=== PATIENT | female | born 1960 | race Two or more races ===

== ENCOUNTER 2017-05-01 15:32 | Outpatient (CLI) | payer OTHER ==
[2017-05-01 16:01] LABS: CREATININE 0.7 mg/dL (0.4-1.0)
== END 2017-05-01 15:33 | disposition home or self-care (01) ==
LOC: LAB 15:32
PROVIDERS: ATTEND Psychiatry & Neurology Neurology
DX: D32.9 Benign neoplasm of meninges, unspecified (principal)
CPT/HCPCS: 36415; 82565; 84520

== ENCOUNTER 2017-05-08 13:39 | Outpatient (CLI) | payer OTHER ==
[2017-05-08] MEDS ORDERED: GADOBUTROL 7.5 MMOL/7.5 ML VIAL ONE (14:23)
[2017-05-08] MEDS ORDERED: GADOBUTROL 7.5 MMOL/7.5 ML VIAL IVP ONE (15:06)
--- NOTE | 2017-05-08 16:55 | MRI Report ---
EXAM: MRI BRAIN WITHOUT AND WITH CONTRAST EXAM DATE: 05/08/2017 03:14 PM. CLINICAL HISTORY: MENINGIOMA. COMPARISON: MRI brain 09/15/2015 TECHNIQUE: Multiplanar, multisequence T1-weighted and fluid-sensitive MR sequences of the brain were performed. Sequences optimized for routine evaluation. Other: None. Without and with IV Contrast: Yes . 7.5 mL Gadavist FINDINGS: Brain Volume: Normal for age. Parenchyma/Dura: Again noted is bifrontal, right greater than left, cystic encephalomalacia with surr ounding gliosis at the site of previously resected meningioma. The overall appearance is similar to p rior study, with unchanged size of the cysts bilaterally. No abnormal enhancement to suggest residual /recurrent meningioma. No acute hemorrhage, mass, or acute infarct. Scattered T2/FLAIR hyperintense s ubcortical and deep white matter lesions within cerebral hemispheres bilaterally. No parenchymal micr ohemorrhages. Ventricles/Cisterns: Stable size and configuration of the ventricles with stable ex vacuo dilatation of the frontal horns and anterior bodies of the lateral ventricles. Sinuses: No acute appearing sinus disease. Bones: Likely status post prior bifrontal craniotomy. Otherwise no marrow signal abnormality. Other: Empty sella appearance is noted, may represent empty sella syndrome. IMPRESSION: 1. Again noted is bifrontal, right greater than left, cystic encephalomalacia with surrounding gliosi s at the site of previously resected meningioma. The overall appearance is similar to prior study, wi th unchanged size of the cysts bilaterally. No abnormal enhancement to suggest residual/recurrent men ingioma. 2. Scattered T2/FLAIR hyperintense subcortical and deep white matter lesions within cerebral hemisphe res bilaterally. These lesions are nonspecific, and can be seen with the entire gamut of white matter conditions, including migraine headaches and as sequela of chronic microangiopathy. This is likely o f no clinical significance unless correlated with history of hypertension/diabetes. It is likely unre lated to present symptomatology. 3. No evidence of acute intracranial abnormality. [facility] Referring Provider Line: [phone] SITE ID: [id number]
== END 2017-05-08 13:40 | disposition home or self-care (01) ==
LOC: DI 13:39
PROVIDERS: ATTEND Psychiatry & Neurology Neurology
DX: D32.9 Benign neoplasm of meninges, unspecified (principal); G93.89 Other specified disorders of brain
CPT/HCPCS: 70553; A9585

== ENCOUNTER 2018-11-01 16:01 | Outpatient (CLI) | payer OTHER ==
[2018-11-01] MEDS ORDERED: GADOBUTROL 7.5 MMOL/7.5 ML VIAL ONE (16:50)
[2018-11-01] MEDS ORDERED: GADOBUTROL 7.5 MMOL/7.5 ML VIAL IVP ONE (16:57)
--- NOTE | 2018-11-02 17:01 | MRI Report ---
Reason: MENINGIOMA Procedure Date: 11/01/2018 Accession Number: [id number] / [id number] Procedure: MRI - Brain W/WO CPT Code: FULL RESULT: EXAM: MRI BRAIN WITHOUT AND WITH CONTRAST EXAM DATE: 11/01/2018 05:05 PM. CLINICAL HISTORY: 58-year-old female. History of meningioma status post resection 2004. Recent visual disturbances. Follow-up evaluation. COMPARISON: MR brain 05/08/2017 TECHNIQUE: Multiplanar, multisequence T1-weighted and fluid-sensitive MR sequences of the brain were performed. Sequences optimized for routine evaluation. Other: None. IV Contrast: 6.5 ML Gadavist. FINDINGS: Parenchyma: Redemonstration of bifrontal cystic encephalomalacia and surrounding gliosis, right greater than left at the site of the previously resected meningioma. The overall appearance is similar to the prior study. No abnormal enhancement to suggest residual/recurrent meningioma. No acute hemorrhage, mass, or acute infarct. Scattered T2/FLAIR hyperintense subcortical and deep white matter lesions are again seen within cerebral hemispheres bilaterally. Two 3 mm T2 hypointense lesions within the right subinsular region (series 601 image 14), lateral right frontal lobe (series 601 image 13). These are nonspecific, may represent small cavernous malformations. Ventricles/Cisterns: Stable size and configuration of the ventricles and cisterns with stable exvacuo dilatation of the frontal horns and anterior bodies of the lateral ventricles. Orbits: Symmetric and unremarkable. Sella Turcica: Empty sella appearance is noted, may represent empty sella syndrome. IAC: Symmetric and unremarkable. Vasculature: Normal signal flow void is seen in the major arterial structures at the skull base. The dural sinuses are patent and enhance normally. Sinuses: No acute sinus disease. Bones: Status post bifrontal craniotomy. Other: None. IMPRESSION: 1. Redemonstration of bifrontal cystic encephalomalacia and surrounding gliosis, right greater than left at the site of the previously resected meningioma. The overall appearance is similar to the prior study. No abnormal enhancement to suggest residual/recurrent meningioma. 2. No acute hemorrhage, mass, or acute infarct. 3. Scattered T2/FLAIR hyperintense subcortical and deep white matter lesions are again seen within cerebral hemispheres bilaterally. While nonspecific, these are favored to represent sequela of chronic microangiopathy. 4. Two 3 mm T2 hypointense lesions within the right subinsular region (series 601 image 14), lateral right frontal lobe (series 601 image 13). These are nonspecific, may represent small cavernous malformations. 5. Stable size and configuration of the ventricles and cisterns with stable ex vacuo dilatation of the frontal horns and anterior bodies of the lateral ventricles. 6. Empty sella appearance is noted, may represent empty sella syndrome. [facility]
== END 2018-11-01 16:02 | disposition home or self-care (01) ==
LOC: DI 16:01
PROVIDERS: ATTEND Psychiatry & Neurology Neurology
DX: G93.89 Other specified disorders of brain (principal); H53.40 Unspecified visual field defects
CPT/HCPCS: 70553; A9585

== ENCOUNTER 2019-01-24 09:15 | Outpatient (CLI) | payer OTHER ==
[2019-01-24 10:18] VITALS: BP 130/80
--- NOTE | 2019-01-24 10:18 | CONSULTATION NOTE ---
Information from patient questionnaire entered by Theresa Rowley. I have reviewed and concur with the information entered by Theresa Rowley. This document represents the service I personally performed and the decisions made by me, Usha Rocha MD, [facility]. - History of Present Illness Chief Complaint: Insomnia, Unrefreshed sleep, Excessive daytime sleepiness, Fatigue The patient tells me that she normally goes to bed around 10:30 pm, and it takes her approximately 2 hours to fall asleep. She took melatonin but it did not help. She was also prescribed Lunesta which helped but she stopped after 2 - 3 weeks. She has been told that she snores loudly and irregularly at night. She has been observed to stop breathing in her sleep. Her bed partner can still sleep in the same bed. He uses a CPAP. 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 She can recall waking up on the average of 1-2 times during the night. Most of the time she wakes up because of snoring and choking. There is a lot of tossing and turning in her sleep. Generally she can recall having dreams. She usually wakes up at 6:30 am and does not feel refreshed. She gets up the same time on weekends. She usually does not have a morning headache. D uring the day she complains of feeling sleepy and fatigued. She has never fallen asleep while driving nor has any accident due to sleepiness. She usually does not take naps during the day. If she naps, upon falling asleep during the day she denies having vivid dreams. She reports having impaired concentration during the day. There is no somniloquy (sleep talking) or somnambulism (sleep walking). [place] Sleepiness Scale Score: 17 - Past Medical History Past Medical History: Hypertension, Hypothyroidism, Asthma, Other (pre-diabetic S/P tonsillectomy s/p removal of meningioma s/p tracheostomy) - Allergies/Home Medications Allergies and home medications reviewed: Yes - Social History The patient's occupation is a RN. Patient is and lives in [place]. Smoked in the past 12 months: No Alcohol use: No Caffeine use: Yes Amount and frequency: 1 cup a day - Family History Family history of sleep disordered breathing: Yes Family Hx Sleep Apnea: Father: Snoring - Review of Systems Weight gain over past 5 years: 40 Respiratory: reports: wheeze Ear/Nose/Throat: reports: nasal congestion, tonsillectomy Endocrine: reports: thyroid disease Immunologic: reports: itching - Physical Examination Vital signs obtained and documented by: Dr. Rocha Blood Pressure: 130/80 Cuff size: regular Heart Rate: 72 Height: 5 ft 1 in Weight (kg): 74.389 kg Body Mass Index: 30.9 BMI Classification: Class 1 Neck circumference: 15 Mood/affect: normal HEENT: No craniofacial malformation Nostrils: patent to airflow Turbinates: normal Septum: midline Mouth and throat: narrow oropharynx (Mallampati Class III) Soft palate: long Hard palate: normal Uvula: normal Tongue: enlarged in size with teeth reynolds on lateral edges Tonsils: absent bilaterally Chin and jaw: Micrognathia Neck: normal w/o lymphadenopathy or thyromegaly Heart: regular rate and rhythm, murmur Lungs: clear bilaterally Abdomen: soft Extremities: no edema or clubbing Neurologic: intact - Impression 1. Suspected Obstructive Sleep Apnea-Hypopnea Syndrome, as suggested by a histo ry of loud and irregular snoring, observed cessation of breath while asleep, gasping or choking in sleep, unrefreshed sleep, and excessive daytime sleepiness. Narrow oropharynx and obesity are common predisposing factors for obstructive sleep apnea-hypopnea syndrome. Hypertension is a comorbidity. I recommend proceeding to polysomnography to confirm the diagnosis and to assess severity. If the patient has significant sleep disordered breathing, a manual CPAP titration study will also be performed to find the optimal treatment pressure. I informed the patient of what the sleep studies involve and after some discussion, obtained agreement to proceed. The pathophysiology of obstructive sleep apnea-hypopnea syndrome was discussed with the patient and health risks of cardiovascular and cerebrovascular disease if not treated. Risks of drowsy driving discussed in detail and patient advised to avoid long distance driving and to lung puller at the first sign of drowsiness. Patient agreed to pl an. - Plan Schedule polysomnography +- manual CPAP titration study and return in 1-2 weeks after the study to discuss result and initiate therapy. Avoid long distance driving or driving when feeling sleepy. Avoid alcohol, sedative and muscle relaxant around bedtime. Attempt to lose weight. Review instructions provided by trained office staff on how to prepare for the sleep study. Return for follow-up after sleep study completed. I spent 100% of this 25 minute visit face to face with the patient with greater than 50% of this was spent time counseling the patient and coordination of care.
== END 2019-01-24 09:16 | disposition home or self-care (01) ==
LOC: SC 09:15
PROVIDERS: ATTEND Internal Medicine Pulmonary Disease
DX: R06.83 Snoring (principal); R06.81 Apnea, not elsewhere classified; G47.10 Hypersomnia, unspecified; G47.8 Other sleep disorders
CPT/HCPCS: 99203; 99212

== ENCOUNTER 2019-02-11 19:21 | Outpatient (CLI) | payer OTHER | END 2019-02-11 19:22 | disposition home or self-care (01) | LOC: SC 19:21 | PROVIDERS: ATTEND Internal Medicine Pulmonary Disease | DX: G47.33 Obstructive sleep apnea (adult) (pediatric) (principal) | CPT/HCPCS: 95810 ==

== ENCOUNTER 2019-02-24 06:07 | Day surgery (SDC) | payer OTHER ==
[2019-02-24] MEDS ORDERED: LACTATED RINGERS 1,000 ML IV ONE (06:29)
[2019-02-24] MEDS ORDERED: CEFAZOLIN SODIUM IN 0.9 % NACL 2 GM/100 ML BAG IV ONE (06:35)
--- NOTE | 2019-02-24 07:08 | ANESTHESIA ---
Pre-Anesthesia VS, & Labs - Diagnosis right hallux valgus - Procedure right bunionectomy Vital Signs: Temp Pulse Resp BP Pulse Ox 36.3 C L 65 16 116/89 H 97 02/24/19 06:29 02/24/19 06:29 02/24/19 06:29 02/24/19 06:29 02/24/19 06:29 Height 5 ft 1 in Weight (kg) 73.2 kg Body Mass Index 30.9 - NPO >8 hours - Is Patient ?: Not Applicable - Lab Results Current Lab Results: Laboratory Tests 02/24/19 06:52: POC Whole Bld Glucose 112 H Lab results reviewed: Yes Home Medications and Allergies Home Medications: Ambulatory Orders Aspirin [Adult Aspirin Regimen] 81 mg PO 02/17/19 Carboxymethylcellulos/Glycerin [Refresh Optive Eye Drops] 5 ml OP 02/17/19 Fluticasone [Flonase] 1 sprays [place] BID 02/17/19 Levalbuterol [Xopenex] 1 puffs INH Q4-6H 02/17/19 Levetiracetam [Keppra] 500 mg PO BID 02/17/19 Levothyroxine [Synthroid] 25 mcg PO QDAC 02/17/19 Losartan [Cozaar] 25 mg PO DAILY 02/17/19 Metformin HCl [Metformin HCl ER] 750 mg PO DAILY 02/17/19 [place]-3/Dha/Epa/Fish Oil [Fish Oil 1,000 mg Softgel] 1 each PO 02/17/19 Rosuvastatin Calcium [Crestor] 20 mg PO DAILY 02/17/19 Aspirin [Adult Aspirin Regimen] 81 mg PO 02/17/19 Carboxymethylcellulos/Glycerin [Refresh Optive Eye Drops] 5 ml OP 02/17/19 Fluticasone [Flonase] 1 sprays [place] BID 02/17/19 Levalbuterol [Xopenex] 1 puffs INH Q4-6H 02/17/19 Levetiracetam [Keppra] 500 mg PO BID 02/17/19 Levothyroxine [Synthroid] 25 mcg PO QDAC 02/17/19 Losartan [Cozaar] 25 mg PO DAILY 02/17/19 Metformin HCl [Metformin HCl ER] 750 mg PO DAILY 02/17/19 [place]-3/Dha/Epa/Fish Oil [Fish Oil 1,000 mg Softgel] 1 each PO 02/17/19 Rosuvastatin Calcium [Crestor] 20 mg PO DAILY 02/17/19 Allergies/Adverse Reactions: Allergies Allergy/AdvReac Type Severity Reaction Status Date / Time albuterol Allergy tachycardia Verified 02/17/19 08:51 Anes History & Medical History - Anesthetic History Anesthesia Complications: reports: No previous complications Family history of Anesthesia Complications: Denies Family history of Malignant Hyperthermia: Denies - Medical History Cardiovascular: reports: Hypertension, High cholesterol Pulmonary: reports: Asthma Musculoskeletal: reports: Other Endocrine/Autoimmune: reports: Type 2 diabetes, HyPOthyroidism Skin: reports: None Smoking Status: Never smoker - Surgical History General: Appendectomy, Colonoscopy Eyes Ears Nose Throat (EENT): Tonsil/Adenoidectomy Gynecologic: section, Endometrial ablation, Tubal ligation Neurologic: Craniotomy Orthopedic: Arthroscopic surgery Exam General: Alert, Oriented x3, Cooperative, No acute distress Dental: WNL Mouth Openin Fingerbreadth Neck Mobility: Normal Mallampati classification: II Thyromental Distance: 4-6 cm Respiratory: Lungs clear Cardiovascular: Normal S1, Normal S2 Plan Anesthesia Type: General Consent for Procedure(s) Verified and Reviewed: No Code Status: Attempt Resuscitation ASA classification: 3-Severe systemic disease Is this case an emergency?: No
[2019-02-24] MEDS ORDERED: BUPIVACAINE 0.25% PF 30 ML VIAL ONE (07:25)
[2019-02-24] MEDS ORDERED: BUPIVACAINE 0.25% PF 30 ML VIAL SUBQ ONE ×2 (08:19)
[2019-02-24] MEDS ORDERED: HYDROmorphone 1 MG/ML CARPUJECT ONE (10:00)
[2019-02-24] MEDS ORDERED: oxyCODONE 5 MG TABLET PO PRN (10:01)
[2019-02-24] MEDS ORDERED: ONDANSETRON 4 MG/2 ML VIAL IVP PRN (10:01)
--- NOTE | 2019-02-24 10:05 | OPERATIVE REPORT ---
Operative Report - Other Other Information/Narrative: Date of Surgery: 24 February 2019 Pre-Op Diagnosis: Right hallux valgus Procedure: Right first metatarsal scarf osteotomy, right modified Lopez procedure Postop Diagnosis: Same Primary Surgeon: Ha Goetz Secondary Surgeon: None Complications: None Tourniquet Time: 77 EBL: 20 cc Bunion Postoperative Plan: 0-2 weeks: No weight bearing leave dressing intact 2 week appt: Non weight bearing xrays, sutures out, bunion brace applied 2-4 weeks: No weight bearing, may remove bunion brace for showers, no soaking incision 4 week appt: Reassess, provide forefoot offloading hard soled shoe 4-8 weeks: WBAT in forefoot offloading shoe, continue to use bunion brace 8 week blu: Weight bearing xrays, may transition to normal shoe Indication For Surgery: 58-year-old female with 6 years of painful bilateral bunions with the right hurting her more than the left. She tried shoe modifications activity modifications, and anti-inflammatory medications. Her symptoms were refractory to these treatments.. The risks, benefits, and alternatives were discussed. Risks include pain, bleeding, infection, damage to nearby structures, numbness, recurrence of bunion, hallux varus, lack of symptom relief, implant complications, nonunion, need for further surgery, DVT, PE, stroke, and . Written consent was obtained. Procedure in Detail: The patient was met in the pre-operative hold area on the day of the procedure. The operative extremity was signed and questions were answered. The patient was brought to the operating room and a general anesthetic was administered. Supine position was used and bony prominences were padded. Standard prepping and draping was performed. A time out confirmed patient identification, laterality, procedure, allergies, antibiotics, and images. An Esmarch was used to exsanguinate the limb and the tourniquet was elevated to 250 mmHg. A 3 cm incision was made between the first and second metatarsal heads and blunt dissection was carried down. The neurovascular bundle was protected with a dull retractor. I identified the adductor tendon and the intermetacarpal ligament and sharply resected them from their attachments on the first ray. I took care to leave the flexor hallucis brevis attached to the lateral sesamoid. I incised the capsule between the sesamoid and the metacarpal head. I then pie crusted the lateral capsule between the metacarpal head and the proximal phalanx. A varus force was then applied to the toe and the toe freely moved in the varus. This wound was then packed with gauze A direct medial incision was made over the first metatarsal from the metatarsal phalangeal joint to just short of the tarsometatarsal joint. Blunt dissection was used to identify the dorsal cutaneous nerve and this was protected throughout the case. Full-thickness skin flaps were created. A full-thickness longitudinal capsular incision was made in the first MTP joint and the capsule was dissected off of the metatarsal head ensuring to preserve the plantar capsular attachments with the accompanying blood supply. A periosteal elevator was used to free the periosteum along the medial shaft. A silver osteotomy was then performed just off the cartilage surface ensuring to leave a medial shoulder. The distal dorsal transverse osteotomy was then made perpendicular to the first metatarsal shaft starting centrally and the metatarsal head. The total sawblade was left in place and the plantar proximal transverse osteotomy was made parallel to this ensuring to be within metaphyseal bone. The longitudinal osteotomy was then made parallel to the walking surface of the foot. A second proximal transverse osteotomy was made and a 4 mm chunk of bone was removed. A freer elevator was used to release the periosteum on the lateral surface to allow for the shift. I then shifted the plantar fragment laterally and pulled the dorsal fragment medially. This was then clamped in place and imaging confirmed excellent position. The plantar capsule was pulled on and the sesamoids reduced nicely. Satisfied with this position, countersunk 2.0 millimeter screws were placed proximally and distally confirming excellent purchase. The clamp was then removed and the fixation was stable. The medial shelf of bone was then excised with a sagittal saw. The wound was irrigated copiously. The medial shelf fragment was then flipped and inverted and placed plantarly at the osteotomy site. Images were again taken. I then reassessed the toe and found that there was good spread between the first and second toe and determined that an Joe osteotomy was not necessary. I then excised the excess medial capsule and performed a vest over pants plication and derotational capsular closure using 2-0 fiberwire, burying the knots between layers. This was backed up with multiple 0 Vicryl sutures. The periosteal layer was then closed with 0 Vicryl. The skin was closed with 2-0 Vicryl in the subdermis and 3-0 nylon in the skin. 10 cc of quarter percent Marcaine without epinephrine was placed deep to the incision. A sterile bunion dressing was applied. The patient was awakened and transferred to the recovery room.
[2019-02-24] MEDS ORDERED: oxyCODONE 5 MG TABLET ONE (11:18)
[2019-02-24 11:31] VITALS: BP 121/89
== END 2019-02-24 06:08 | disposition home or self-care (01) ==
LOC: SDS 06:07
PROVIDERS: ATTEND Orthopaedic Surgery
PROC: 0QBN0ZZ Excision of Right Metatarsal, Open Approach (ICD-10-PCS; 2019-02-24)
PROC: 0QSN04Z Reposition Right Metatarsal with Internal Fixation Device, Open Approach (ICD-10-PCS; principal; 2019-02-24 07:30)
DX: M20.11 Hallux valgus (acquired), right foot (principal); M21.611 Bunion of right foot; M21.41 Flat foot [pes planus] (acquired), right foot; M19.071 Primary osteoarthritis, right ankle and foot; M21.612 Bunion of left foot; M21.42 Flat foot [pes planus] (acquired), left foot; E11.9 Type 2 diabetes mellitus without complications; I10 Essential (primary) hypertension; J45.909 Unspecified asthma, uncomplicated; Z79.899 Other long term (current) drug therapy; Z79.84 Long term (current) use of oral hypoglycemic drugs; Z79.82 Long term (current) use of aspirin; Z79.51 Long term (current) use of inhaled steroids
CPT/HCPCS: 28299; A9270; C1713; J0690; J1170; J7120

== ENCOUNTER 2019-03-08 08:14 | Outpatient (CLI) | payer OTHER ==
[2019-03-08 09:09] VITALS: BP 104/68
--- NOTE | 2019-03-08 09:09 | SLEEP CARE CONSULTATION ---
Information from patient questionnaire entered by Theresa Rowley. I have reviewed and concur with the information entered by Theresa Rowley. This document represents the service I personally performed and the decisions made by me, Tania Zuluaga RN, MSN, [employer]. History of Present Illness Initial [place] Sleepiness Scale score: 17 Current [place] Sleepiness Scale score: 13 Additional HPI information: JONA RODRIGUEZ returns for follow up of the recently performed polysomnography. The patient was informed of the following polysomnography findings: I explained the pathophysiology behind obstructive sleep apnea. We then spent quite a bit of time discussing different treatment options. For mild obstructive sleep apnea, surgery and oral appliance are alternatives to nasal CPAP therapy but in moderate or severe cases, nasal CPAP is the most effective and reliable treatment. Because apnea is primarily in supine position, then positional management therapy could be effective. Methods discussed such as positioning with pillows, using a T-shirt with tennis balls in the back, and shown commercial products that have a pillow format on back to prevent supine sleep. I reviewed the impact of weight changes on sleep apnea and strongly recommended losing weight. After some discussion, the patient opted to go with the nasal CPAP therapy. Nasal autoCPAP set at [id number] will be ordered with rationale explained. A manual titration study will be ordered if unable to find optimal pressure with office adjustments. I explained how CPAP machine works with sample devices Respironics Dreamstation and ResElyssafregori [id number] and what to expect when using the machine. Patient prefers to try the Dreamstation. Using CPAP every night in order to get used to it was emphasized. Patient advised to put CPAP mask on before getting into bed so as not to fall asleep without CPAP. To assist acclimation to CPAP use, it could also be used for a short time during day while reading or watching TV. The patient was instructed to call the CPAP supplier to discuss any mechanical problem that may occur. If the mask given is uncomfortable or is difficult to keep on through the night even with adjustment, contact the CPAP supplier as many will replace with another mask style if notified before 30 days. If snoring or perceives is not getting enough air or too much air from the machine, notify this office. AAS patient education PAP tips reviewed and given to patient. Patient counseled not drink alcohol less than 4 hours before bedtime as it can increase snoring and apnea. Patient does not drink alcohol. Patient was cautioned about risks of drowsy driving until sleepiness symptoms resolve. Patient denies drowsy driving. AAS patient education on snoring and sleep apnea given and reviewed. Sleep Study - Polysomnography Polysomnography findings: The quality of the study is good. The patient had normal sleep efficiency. The sleep architecture was relatively normal as well considering the first night effect. Respiratory monitoring showed mild obstructive sleep apnea-hypopnea (AHI = 9.8) associated with oxyhemoglobin desaturation and mild hypoxia (cindy oxygen saturation of 84%) but not sleep fragmentation. The respiratory events occurred mainly during supine sleep (supine AHI = 19.4; non-supine = 7.01). Snore was light to loud in intensity. There was no significant periodic leg movement of sleep. Cardiac rhythm was normal sinus rhythm without significant arrhythmia. No abnormal behavior (parasomnia) observed during the night. Allergies and Home Medications Known drug allergies: Yes (albuterol ) Home medication list reviewed: Yes (patient will bring doses in next visit) Review of Systems Review of systems same as previous: No (right foot surgery 02/24/19) Physical Exam Blood Pressure: 104/68 Cuff size: regular Heart Rate: 71 O2 Saturation: 98 Impression and Plan 1. Obstructive Sleep Apnea-Hypopnea Syndrome, mild, with lowest oxygen saturation of 84%. Obviously this is the cause of the patients symptoms of unrefreshed sleep, and excessive daytime sleepiness. Positive pressure therapy could benefit her asthma and hypertension. As mentioned above, the patient will be started on nasal autoCPAP therapy with pressure set at 4-15 cmH2O. A manual titration study will be completed if unable to find optimal treatment pressure with office adjustments. Compliance guidelines also reviewed. A copy of compliance guidelines will be given for reference at check out. [Because the apnea is more severe supine, I instructed to avoid sleeping supine using pillow positioning until able to start CPAP use. * Nasal auto CPAP therapy, pressure at 4-15 cm H2O. * Attempt to lose weight. * Avoid alcohol consumption near bedtime. * Avoid supine sleep until using CPAP. * The patient is again cautioned about driving until sleepiness completely resolves. * Return one month after CPAP obtained. I will assess response to therapy and compliance at that time. I spent 100% of this 38 minute visit face to face with the patient with greater than 50% of this was spent time counseling the patient and coordination of care.
== END 2019-03-08 08:15 | disposition home or self-care (01) ==
LOC: SC 08:14
PROVIDERS: ATTEND Nurse Practitioner Family
DX: G47.33 Obstructive sleep apnea (adult) (pediatric) (principal)
CPT/HCPCS: 99212; 99214

== ENCOUNTER 2019-06-15 08:18 | Outpatient (CLI) | payer OTHER ==
--- NOTE | 2019-06-15 09:07 | SLEEP CARE CONSULTATION ---
Information from patient questionnaire entered by Theresa Rowley. I have reviewed and concur with the information entered by Theresa Rowley. This document represents the service I personally performed and the decisions made by me, Tania Zuluaga, RN, MSN, [employer]. History of Present Illness Previous diagnosis: Mild, Obstructive Sleep Apnea-Hypopnea Syndrome AHI: 9.8 Reason for follow up: first compliance Equipment type: CPAP Equipment obtained from: [employer] Mask style: Nasal (Dreamwear nasal) Mask brand: Respironics Backup mask available: Yes (full face mask tried but leaked too much) Last cushion change: 3-4 days ago CPAP Compliance Data - Data Reviewed with Patient Average duration of nightly device use: 5.65 Compliance rate %: 90 Current pressure setting (cmH2O): 4-15 Humidity settin Heated hose settin Average residual AHI: 1.7 Average large leak: 9 min 37 sec Subjective Missed days of use due to: reports: other (mask problems and called the RT and new mask given ) Patient concerns: reports: condensation in mask/hose (intermittently ), nasal congestion (2-3 times a week when awakens ), other (sudden increase in pressure and moisture/fluid in nose). denies: aerophagia, mask discomfort, air blowing in eyes, mask leak noise, dry mouth, nose, throat, epistaxis Observed to snore while using device: No Current pressure setting perceived as: too high (awakens patient in middle of night when it shows 6.5 cmH20 pressure and unable to return to sleep.) On therapy, patient: reports: sleeping better, awakening more refreshed, being more awake and alert during the day, more rested overall. denies: drowsiness while driving Initial [place] Sleepiness Scale score: 17 Current [place] Sleepiness Scale score: 6 Allergies and Home Medications Home medication list reviewed: Yes (no changes) Physical Exam Blood Pressure: 110/80 Cuff size: regular Heart Rate: 69 O2 Saturation: 98 Height: 5 ft 1 in Weight: 165 lb Body Mass Index: 31.1 BMI Classification: Obesity Class 1 Impression and Plan 1. Obstructive Sleep Apnea-Hypopnea Syndrome, mild but moderate supine, with good treatment compliance and good apnea control. On CPAP therapy, the patient has better sleep quality and is more rested overall. To improve comfort of air pressure and reduce nocturnal awakenings, I will adjust her autoCPAP pressure to 4-6cmH20. To reduce condensation, she was shown how to adjust heated hose and humidity on sample device and discussed rationale for why to change. Printed instructions given with written rationale. The adjustment of settings could also reduce nasal congestion. In addition, I gave her a sample of saline nasal spray to use prior to CPAP to clear nasal secretions and wash off allergens before CPAP use. This can be used prior to her Flonase to improve medication adherence. Patient also reports insomnia, sleep initiation and maintence. It is hoped some of the above measures will reduce insomnia. Until then she will complete sleep diary for further evaluation on follow up. Patient's apnea severity and rationale for treatment to reduce apnea, improve sleep quality and reduce cardiovascular and cerebrovascular events was reviewed. I also reviewed the benefit of consistent device use of CPAP for hypertension, pre diabetes, and asthma. * Change CPAP pressure to 4-6 cmH2O * Implement measures to reduce condensation and nasal congestion. * Notify me if snoring with mask or feeling that the pressure is too much or too little * Attempt to lose weight * Sleep diary 2-4 weeks. * Return for follow up in 1-2 months , or sooner if concerns arise I spent 100% of this 35 minute visit face to face with the patient with greater than 50% of this was spent time counseling the patient and coordination of care.
[2019-06-15 09:08] VITALS: BP 110/80
== END 2019-06-15 08:19 | disposition home or self-care (01) ==
LOC: SC 08:18
PROVIDERS: ATTEND Nurse Practitioner Family
DX: G47.33 Obstructive sleep apnea (adult) (pediatric) (principal); E66.9 Obesity, unspecified; Z68.31 Body mass index [BMI] 31.0-31.9, adult
CPT/HCPCS: 99212; 99214

== ENCOUNTER 2020-03-07 16:41 | Outpatient (CLI) | payer OTHER ==
--- NOTE | 2020-03-07 17:10 | SLEEP CARE CONSULTATION ---
Information from patient questionnaire entered by Theresa Rowley. I have reviewed and concur with the information entered by Theresa Rowley. This document represents the service I personally performed and the decisions made by , Betty Kong ARNP. History of Present Illness Service Date and Time: 03/07/2020 1641 Previous diagnosis: Mild, Obstructive Sleep Apnea-Hypopnea Syndrome AHI: 9.8 (in 2019) Reason for follow up: other (8 month) Equipment type: CPAP Equipment obtained from: [employer] (getting supplies as needed) Mask style: Nasal (Wisp) Backup mask available: Yes (old mask) Last cushion change: 3 weeks ago Prior sleep studies: Yes Year and Where: 2019 - [facility] Type of Sleep Study: Polysomnography HPI additional information: JONA RODRIGUEZ was diagnosed to have mild, AHI 9.8, obstructive sleep apnea- hypopnea syndrome and returned today for CPAP therapy eight month follow-up due to her 6 month follow up being cancelled due to pandemic. CPAP Compliance Data - Data Reviewed with Patient Average duration of nightly device use: 5.75 Compliance rate %: 95 (180 days) Current pressure setting (cmH2O): 4-6 Humidity settin Heated hose settin Average residual AHI: 2.3 Average large leak: 20 min 49 sec Subjective Missed days of use due to: reports: travel Patient concerns: reports: mask leak noise (just a couple of times when dislodged when laying on side). denies: aerophagia, mask discomfort, air blowing in eyes, condensation in mask/hose, nasal congestion, dry mouth, nose, throat, epistaxis, other (straps are marking face) Observed to snore while using device: No Current pressure setting perceived as: too low On therapy, patient: reports: sleeping better, awakening more refreshed, being more awake and alert during the day, more rested overall. denies: drowsiness while driving Initial [place] Sleepiness Scale score: 17 (in 2019) Current [place] Sleepiness Scale score: 4 Allergies and Home Medications Drug allergies reviewed: Yes (albuterol) Home medication list reviewed: Yes (no changes) Review of Systems Review of systems same as previous: Yes (no changes) Physical Exam Heart Rate: 64 O2 Saturation: 98 Height: 5 ft 1 in Weight: 162 lb Body Mass Index: 30.6 BMI Classification: Obese Impression and Plan 1. Obstructive Sleep Apnea-Hypopnea Syndrome, mild, with good treatment compliance and good apnea control. On CPAP therapy, there is improved sleep quality and feels more rested overall. Patient has some issues with reynolds on her face after wearing the mask that last 3 hours after taking the headgear off. She was advised to look into obtaining soft fabric coverings to pad the straps to help reduce the appearance of indents on her face. She voiced understanding and agreement. She also feels that the 4 cm H2O is too low and would like to increase it back to 4.5 cm H2O where she felt it was comfortable. Patient's apnea severity and rationale for treatment to reduce apnea, improve sleep quality and reduce cardiovascular and cerebrovascular events was reviewed. I also reviewed the benefit of consistent device use of CPAP for hypertension, pre-diabetes, and asthma. Change auto CPAP pressure at 4.5-6 cm H2O. Notify me if snoring with the mask or feeling that the pressure is too much or too little. Obtain soft fabric coverings for her headgear straps to reduce appearance of indents in skin from CPAP wear. Attempt to lose weight. Return for follow-up in 1-2 months, or sooner if concerns arise. Visit Type: In Office Time Spent with Patient (minutes): 15 Provider Statement: I spent 100% of the Face to Face Visit with the patient with greater than 50% spent counseling the patient and coordination of care.
== END 2020-03-07 16:42 | disposition home or self-care (01) ==
LOC: SC 16:41
PROVIDERS: ATTEND Nurse Practitioner Family
DX: G47.33 Obstructive sleep apnea (adult) (pediatric) (principal); E66.9 Obesity, unspecified; Z68.30 Body mass index [BMI] 30.0-30.9, adult
CPT/HCPCS: 99212; 99213

== ENCOUNTER 2020-05-11 11:50 | Outpatient (CLI) | payer OTHER ==
--- NOTE | 2020-05-11 12:11 | SLEEP CARE CONSULTATION ---
Information from patient questionnaire entered by Theresa Rowley. I have reviewed and concur with the information entered by Theresa Rowley. This document represents the service I personally performed and the decisions made by , Betty Kong ARNP. History of Present Illness Service Date and Time: 05/11/2020 1150 Previous diagnosis: Mild, Obstructive Sleep Apnea-Hypopnea Syndrome AHI: 9.8 (in 2019) Reason for follow up: other (2 month with pressure change) Equipment type: CPAP Equipment obtained from: [employer] (getting supplies as needed) Mask style: Nasal Mask brand: Respironics (Wisp) Backup mask available: Yes (old mask) Last cushion change: 2 weeks ago Prior sleep studies: Yes Year and Where: 2019 - [facility] HPI additional information: JONA RODRIGUEZ was diagnosed to have mild, AHI 9.8, obstructive sleep apnea- hypopnea syndrome and returned today for CPAP therapy two month pressure change follow-up. CPAP Compliance Data - Data Reviewed with Patient Average duration of nightly device use: 6.2 Compliance rate %: 96.7 Current pressure setting (cmH2O): 4.5-6 Humidity settin Heated hose settin Average residual AHI: 2.0 Central apnea: 0.1 Obstructive apnea: 0.3 Average large leak: 5 min 36 sec Subjective Patient concerns: denies: aerophagia, mask discomfort, air blowing in eyes, mask leak noise, condensation in mask/hose, nasal congestion, dry mouth, nose, throat, epistaxis, other Observed to snore while using device: No Current pressure setting perceived as: comfortable On therapy, patient: reports: sleeping better, awakening more refreshed, being more awake and alert during the day, more rested overall. denies: drowsiness while driving Initial [place] Sleepiness Scale score: 17 (in 2019) Current [place] Sleepiness Scale score: 4 Allergies and Home Medications Drug allergies reviewed: Yes (albuterol) Home medication list reviewed: Yes (no changes) Review of Systems Review of systems same as previous: Yes (no changes) Physical Exam Heart Rate: 65 O2 Saturation: 95 Height: 5 ft 1 in Weight: 161 lb Body Mass Index: 30.4 BMI Classification: Obese Impression and Plan 1. Obstructive Sleep Apnea-Hypopnea Syndrome, mild, with good treatment compliance and good apnea control. On CPAP therapy, the patient has better sleep quality and is more rested overall. She has not more feeling of not enough pressure and has good residual apnea control at 2.0. She has not other issues and may follow up for her annual next year. She was advised to try to lose weight since this will positively affect her over all health. She was encouraged to follow up if she should feel the pressure is too low, too high or she has aerophagia. She voiced understanding. Patient's apnea severity and rationale for treatment to reduce apnea, improve sleep quality and reduce cardiovascular and cerebrovascular events was reviewed. I also reviewed the benefit of consistent device use of CPAP for hypertension, pre-diabetes, and asthma. * Continue auto CPAP pressure at 4.5-6 cmH2O * Notify me if snoring with mask or feeling that the pressure is too much or too little * Attempt to lose weight * Call this office if any problems using CPAP * Return for follow up in 1 year, or sooner if concerns arise Counseling Topics: Spare mask, Weight loss health impact Visit Type: In Office Time Spent with Patient (minutes): 17 Provider Statement: I spent 100% of the Face to Face Visit with the patient with greater than 50% spent counseling the patient and coordination of care.
== END 2020-05-11 11:51 | disposition home or self-care (01) ==
LOC: SC 11:50
PROVIDERS: ATTEND Nurse Practitioner Family
DX: G47.33 Obstructive sleep apnea (adult) (pediatric) (principal); E66.9 Obesity, unspecified; Z68.30 Body mass index [BMI] 30.0-30.9, adult
CPT/HCPCS: 99212

== ENCOUNTER 2020-06-23 14:48 | Outpatient (CLI) | payer OTHER ==
[2020-06-23] MEDS ORDERED: GADOBUTROL 7.5 MMOL/7.5 ML VIAL ONE (15:51)
[2020-06-23] MEDS ORDERED: GADOBUTROL 7.5 MMOL/7.5 ML VIAL IVP ONE (16:44)
--- NOTE | 2020-06-25 10:06 | MRI Report ---
PROCEDURE: Brain W/WO INDICATIONS: MENINGIOMA CONTRAST: IV CONTRAST: Gadavist ml: 7 TECHNIQUE: Noncontrast axial T1 spin echo, axial T2 fast spin echo, sagittal and axial FLAIR, coronal T2 fast sp in echo, axial gradient echo, axial diffusion and ADC through the brain. After the administration of contrast, axial and coronal T1 spin echo with fat saturation through the brain. COMPARISON: MRI brain 11/01/2018, 05/08/2017, 11/15/2015 FINDINGS: Image quality: Excellent. CSF spaces: Basal cisterns are patent. No extra-axial fluid collections. Ventricles are normal in size and shape. Brain: No midline shift. No intracranial bleeds or masses. No abnormal intracranial enhancement. There is cerebral volume loss for age. There is periventricular white matter chronic small vessel is chemic change. The brainstem appears normal. Diffusion-weighted images demonstrate no acute ischemi c insults. No chronic ischemic insults. Normal intravascular flow voids are present. Previously no kamaljit T2 hypointensities within the subinsular and lateral right frontal lobe are not as well seen on c urrent exam. 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 Appearance is stable compared to prior exams. There is no area of abnormal signal or enhancement t o suggest recurrent disease. Skull and face: Calvarial marrow is normal in signal. Orbits appear normal. Sinuses: Sinuses and mastoids appear clear. IMPRESSION: 1. Stable appearance of frontal lobe resection cavities without evidence of recurrent disease. Reviewed by: Dayanara Pagan MD on 06/25/2020 10:05 AM [facility]UST Approved by: Dayanara Pagan MD on 06/25/2020 10:05 AM [facility] Station ID: [id number]
== END 2020-06-23 14:49 | disposition home or self-care (01) ==
LOC: DI 14:48
PROVIDERS: ATTEND Psychiatry & Neurology Neurology
DX: Z09 Encounter for follow-up examination after completed treatment for conditions other than malignant neoplasm (principal); Z86.011 Personal history of benign neoplasm of the brain
CPT/HCPCS: 70553; A9585

== ENCOUNTER 2020-07-10 15:56 | Outpatient (CLI) | payer OTHER ==
--- NOTE | 2020-07-16 12:43 | Mammography Report ---
BILATERAL DIGITAL SCREENING MAMMOGRAM 3D/2D: 07/10/2020 CLINICAL: Family history of breast cancer. Routine screening. Comparison is made to exam dated: 06/14/2019, 05/25/2017 mammogram - [facility]. The re are scattered fibroglandular elements in both breasts. No significant masses, calcifications, or other findings are seen in either breast. There has been no significant interval change. IMPRESSION: NEGATIVE There is no mammographic evidence of malignancy. A 1 year screening mammogram is recommended. This exam was interpreted at Station ID: [id number]. NOTE: For mammograms, a report in lay terms will be sent to the patient. Approximately 15% of breast malignancies will not be visualized mammographically. In the management of a palpable breast mass, a negative mammogram must not discourage biopsy of a clinically suspicious lesion. Electronically Signed By: Manav Chamorro M.D. slc/:07/12/2020 16:53:47 ACR BI-RADS Category 1: Negative 3341F PARENCHYMAL PATTERN: (A) - The breast(s) demonstrate(s) scattered fibroglandular densities. BI-RADS CATEGORY: (1) - 1 RECOMMENDATION: (ANNUAL) - Recommend routine annual screening mammography. [id number] 1 year screening LATERALITY: (B)
== END 2020-07-10 15:57 | disposition home or self-care (01) ==
LOC: DI.N 15:56
DX: Z12.31 Encounter for screening mammogram for malignant neoplasm of breast (principal); Z80.3 Family history of malignant neoplasm of breast

== ENCOUNTER 2021-04-16 16:32 | Outpatient (CLI) | payer OTHER ==
--- NOTE | 2021-04-16 17:03 | SLEEP CARE CONSULTATION ---
Information from patient questionnaire entered by Em Mcclelland. I have reviewed and concur with the information entered by Em Mcclelland. This document represents the service I personally performed and the decisions made by , Betty Kong ARNP. History of Present Illness Service Date and Time: 04/16/2021 1632 Previous diagnosis: Mild, Obstructive Sleep Apnea-Hypopnea Syndrome AHI: 9.8 (in 2019) Reason for follow up: annual (Last seen 04/2020) Equipment type: CPAP Equipment obtained from: [employer] (having difficulty getting ahold of them to order supplies) Mask style: Nasal (over the nose) Backup mask available: Yes (old mask) Last cushion change: 3 weeks ago Prior sleep studies: Yes Year and Where: 2019 - [facility] additional information: JONA RODRIGUEZ was diagnosed to have mild, AHI 9.8, obstructive sleep apnea- hypopnea syndrome and returned today for CPAP therapy annual follow-up. CPAP Compliance Data - Data Reviewed with Patient Average duration of nightly device use: 4 h 18 min Compliance rate %: 58.3 Current pressure setting (cmH2O): 4.5 - 6 Humidity settin Heated hose settin Average residual AHI: 4.0 Average large leak: 21 min 3 sec Subjective Missed days of use due to: reports: family emergency, mask issues, travel Patient concerns: reports: mask discomfort, air blowing in eyes, mask leak noise, other (Snore while using device, loose straps). denies: aerophagia, condensation in mask/hose, nasal congestion, dry mouth, nose, throat, epistaxis Observed to snore while using device: Yes (per her daughter) Current pressure setting perceived as: comfortable On therapy, patient: reports: sleeping better, awakening more refreshed, being more awake and alert during the day, more rested overall. denies: drowsiness while driving Initial [place] Sleepiness Scale score: 17 (in 2019) Current [place] Sleepiness Scale score: 3 Allergies and Home Medications Home medication list reviewed: Yes (no changes) Review of Systems Review of systems same as previous: Yes (no changes) Physical Exam Heart Rate: 60 O2 Saturation: 97 Height: 5 ft 1 in Weight: 159 lb Body Mass Index: 30.0 BMI Classification: Obese Impression and Plan 1. Obstructive Sleep Apnea-Hypopnea Syndrome, mild, with fair treatment compliance and good apnea control. On CPAP therapy, the patient has better sleep quality and is more rested overall. Patient's daughter has told her she is still snoring when she uses her CPAP. To resolve snore, the CPAP pressure will be changed to 4.5-6.5 cmH20. Patient advised to contact this office if pressure change uncomfortable or if pressure change does not resolve snore. Patient has a Dreamstation but has not register it with [employer]. Patient was encouraged to register their device online with [employer] for the recall to see if their device is affected. If their device is affected they should start a claim. Patient denies any black particles seen in machine or hoses, any unusual odors coming from device. Patient has not experienced any physical symptoms such as upper airway irritation, headache, skin or eye irritation, asthma, nausea/vomiting, difficulty breathing or chest pain. Patient informed that they may use an inline CPAP filter that they can obtain online to reduce chance of any particles being inhaled or ingested. We discussed thoroughly the health risks of not using the CPAP versus continuing use with the filter in place. If patient is not able to sleep due to waking up choking, gasping for air or other respiratory distress that they may decide to continue using it until it is either replaced or repaired. Patient states she lost about 15 pounds but recently due to her 's surgery and traveling to recently for a family emergency, she has been putting some of the weight back on. Patient was encouraged to continue to try to lose weight for her overall health and to reduce apneas. Patient voiced understanding and agreement with plan. Patient's apnea severity and rationale for treatment to reduce apnea, improve sleep quality and reduce cardiovascular and cerebrovascular events was reviewed. I also reviewed the benefit of consistent device use of CPAP for hypertension, pre-diabetes and asthma. * Change auto CPAP pressure to 4.5-6.5 cmH2O * Patient to register her device for the recall * Notify me if snoring with mask or feeling that the pressure is too much or too little * Continue to try to lose weight * Call this office if any problems using CPAP * Return for follow up in 1-2 months, or sooner if concerns arise Counseling Topics: Spare mask, Weight loss health impact Visit Type: In Office Time Spent with Patient (minutes): 22 Provider Statement: I spent 100% of the Face to Face Visit with the patient with greater than 50% spent counseling the patient and coordination of care.
== END 2021-04-16 16:33 | disposition home or self-care (01) ==
LOC: SC 16:32
PROVIDERS: ATTEND Nurse Practitioner Family
DX: G47.33 Obstructive sleep apnea (adult) (pediatric) (principal); E66.9 Obesity, unspecified; Z68.30 Body mass index [BMI] 30.0-30.9, adult
CPT/HCPCS: 99212; 99213

== ENCOUNTER 2021-06-19 16:30 | Outpatient (CLI) | payer OTHER ==
[2021-06-19 17:03] VITALS: BP 124/82
--- NOTE | 2021-06-19 17:03 | SLEEP CARE CONSULTATION ---
Information from patient questionnaire entered by Nara Gamboa MA. I have reviewed and concur with the information entered by Nara Gamboa MA. This document represents the service I personally performed and the decisions made by , Betty Kong ARNP. History of Present Illness Service Date and Time: 06/19/2021 1630 Previous diagnosis: Mild, Obstructive Sleep Apnea-Hypopnea Syndrome AHI: 9.8 (in 2019) Reason for follow up: other (6 WEEK FOLLOW UP, PRESSURE CHANGE) Equipment type: CPAP Equipment obtained from: [employer] (getting supplies as needed) Mask style: Nasal (over the nose) Backup mask available: Yes (old mask) Last cushion change: last Thursday Prior sleep studies: Yes Year and Where: 2019 - [facility] HPI additional information: JONA RODRIGUEZ was diagnosed to have mild, AHI 9.8, obstructive sleep apnea- hypopnea syndrome and returned today for CPAP therapy 6 week with pressure change follow-up. Sleep Study - Results Prior sleep studies: Yes Year and Where: [address] - [facility] CPAP Compliance Data - Data Reviewed with Patient Average duration of nightly device use: 4 HOURS 20 MINUTES Compliance rate %: 63.3 Current pressure setting (cmH2O): 4.5-6.5 Humidity settin Heated hose settin Average residual AHI: 4.7 Average large leak: 44 MINUTES 10 SECONDS Subjective Patient concerns: reports: nasal congestion. denies: aerophagia, mask discomfort, air blowing in eyes, mask leak noise, condensation in mask/hose, dry mouth, nose, throat, epistaxis, other Observed to snore while using device: Yes Current pressure setting perceived as: comfortable On therapy, patient: reports: sleeping better, awakening more refreshed, being more awake and alert during the day, more rested overall. denies: drowsiness while driving Initial [place] Sleepiness Scale score: 17 (in 2019) Current [place] Sleepiness Scale score: 4 (IN 2020) Allergies and Home Medications Home medication list reviewed: Yes (no changes) Review of Systems Review of systems same as previous: Yes (no changes) Physical Exam Vital signs obtained and entered by: CAIT MARTINEZ Blood Pressure: 124/82 (left) Cuff size: wrist Heart Rate: 59 O2 Saturation: 96 (mask) Height: 5 ft 1 in Weight: 155 lb (with boots) Body Mass Index: 29.2 BMI Classification: Overweight Impression and Plan 1. Obstructive Sleep Apnea-Hypopnea Syndrome, mild, with fair treatment compliance and good apnea control. On CPAP therapy, the patient has better sleep quality and is more rested overall. Patient states her daughter tells her she still snores with the CPAP mask on. Her apneas are controlled with an average residual AHI of 4.7. I discussed increasing her pressure more but she would like to stay at current pressures. She was also advised to increase nights with at least 4 hours of sleep on the CPAP. She has insomnia and does not like to wear the mask when awake. Patient's apnea severity and rationale for treatment to reduce apnea, improve sleep quality and reduce cardiovascular and cerebrovascula r events was reviewed. I also reviewed the benefit of consistent device use of CPAP for hypertension, pre-diabetes and asthma. * Continue auto CPAP pressure at 4.5-6.5 cmH2O * Notify me if snoring with mask or feeling that the pressure is too much or too little * Attempt to lose weight * Call this office if any problems using CPAP * Return for follow up in 1 year, or sooner if concerns arise Counseling Topics: Spare mask, Weight loss health impact Visit Type: In Office Time Spent with Patient (minutes): 13 Provider Statement: I spent 100% of the Face to Face Visit with the patient with greater than 50% spent counseling the patient and coordination of care.
== END 2021-06-19 16:31 | disposition home or self-care (01) ==
LOC: SC 16:30
PROVIDERS: ATTEND Nurse Practitioner Family
DX: G47.33 Obstructive sleep apnea (adult) (pediatric) (principal)
CPT/HCPCS: 99212

== ENCOUNTER 2021-06-26 14:53 | Outpatient (CLI) | payer OTHER ==
[2021-06-26] MEDS ORDERED: GADOBUTROL 7.5 MMOL/7.5 ML VIAL ONE (15:14)
[2021-06-26] MEDS ORDERED: GADOBUTROL 7.5 MMOL/7.5 ML VIAL IVP ONE ×2 (16:41)
--- NOTE | 2021-06-27 13:21 | MRI Report ---
PROCEDURE: MRI brain with and without contrast INDICATIONS: SYNCOPE AND COLLAPSE. History of meningioma resection CONTRAST: IV CONTRAST: Gadavist ml: 7 TECHNIQUE: Noncontrast axial T1 spin echo, axial T2 fast spin echo, sagittal and axial FLAIR, coronal T2 fast sp in echo, axial gradient echo, axial diffusion and ADC through the brain. After the administration of contrast, axial and coronal T1 spin echo with fat saturation through the brain. COMPARISON: None. FINDINGS: Image quality: Excellent. CSF spaces: Basal cisterns are patent. No extra-axial fluid collections. Ventricles are normal in size and shape. Brain: No midline shift. No intracranial bleeds or masses. No abnormal intracranial enhancement. There is cerebral volume loss for age. There is periventricular white matter chronic small vessel is chemic change. The brainstem appears normal. Diffusion-weighted images demonstrate no acute ischemi c insults. Normal intravascular flow voids are present. Bifrontal cystic encephalomalacia and gliosis remain unchanged in prior exam. No abnormal enhancement . Skull and face: Calvarial marrow is normal in signal. Orbits appear normal. Bifrontal craniotomy d efects noted. Sinuses: Sinuses and mastoids appear clear. IMPRESSION: 1. Bifrontal cystic encephalomalacia and gliosis, stable from the prior exam Reviewed by: Diego Walker MD on 06/27/2021 12:20 PM [facility] Approved by: Diego Walker MD on 06/27/2021 12:20 PM [facility] Station ID: [id number]
== END 2021-06-26 14:54 | disposition home or self-care (01) ==
LOC: DI 14:53
PROVIDERS: ATTEND Internal Medicine
DX: R55 Syncope and collapse (principal); R53.83 Other fatigue; G93.89 Other specified disorders of brain
CPT/HCPCS: 70553; A9585

== ENCOUNTER 2023-07-18 12:44 | Outpatient (CLI) | payer OTHER ==
[2023-07-18] MEDS ORDERED: GADOTERATE MEGLUMINE 2.5 MMOL/5 ML VIAL ONE (12:51)
[2023-07-18] MEDS ORDERED: GADOTERATE MEGLUMINE 5 MMOL/10 ML VIAL ONE (12:51)
[2023-07-18] MEDS ORDERED: GADOTERATE MEGLUMINE 5 MMOL/10 ML VIAL IVP ONE (14:04)
--- NOTE | 2023-07-20 16:40 | MRI Report ---
PROCEDURE: BRAIN W/WO INDICATIONS: DIZZINESS AND GIDDINESS CONTRAST: CLARISCAN 12.8 ML TECHNIQUE: Noncontrast axial T1 spin echo, axial T2 fast spin echo, sagittal and axial FLAIR, coronal T2 fast sp in echo, axial gradient echo, axial diffusion and ADC through the brain. After the administration of contrast, axial and coronal T1 spin echo with fat saturation through the brain. COMPARISON: Brain 10/30/2016, 09/15/2015, 06/25/2018, 1216, 1027 7 FINDINGS: Image quality: Excellent. CSF spaces: Basal cisterns are patent. No extra-axial fluid collections. Ventricles are normal in size and shape. Brain: No midline shift. No intracranial bleeds or masses. No abnormal intracranial enhancement. There is cerebral volume loss for age. There is periventricular white matter chronic small vessel is chemic change. The brainstem appears normal. Diffusion-weighted images demonstrate no acute ischemi c insults. No chronic ischemic insults. Normal intravascular flow voids are present. Bilateral cys tic encephalomalacia steatosis are present lobes, unchanged. Skull and face: Bilateral bifrontal craniotomy defects. Orbits appear normal. Sinuses: Sinuses and mastoids appear clear. IMPRESSION: Stable interval exam demonstrating cystic encephalomalacia and gliosis. Reviewed by: Dayanara Pagan MD on 07/20/2023 4:39 PM PST Approved by: Dayanara Pagan MD on 07/20/2023 4:39 PM PST Station ID: [id number]
== END 2023-07-18 12:45 | disposition home or self-care (01) ==
LOC: DI 12:44
PROVIDERS: ATTEND Family Medicine
DX: G93.89 Other specified disorders of brain (principal); R42 Dizziness and giddiness; Z86.011 Personal history of benign neoplasm of the brain
CPT/HCPCS: 70553; A9575